=== PATIENT | male | born 1980 | race African-American/Black ===

== ENCOUNTER 2017-04-23 03:35 | Emergency (ER) | payer OTHER ==
[~2017-04-23] VITALS: Ht 190.5 cm; Wt 136.3 kg
[2017-04-23] MEDS ORDERED: HYDR12.55 PO (03:50)
[2017-04-23] MEDS ORDERED: AMLO25TA PO (03:50)
[2017-04-23] MEDS ORDERED: LISI10TA4 PO (03:50)
[2017-04-23 04:23] LABS: BASO % 0.7 % (0.0-1.0); EOS # 0.2 K/mm3 (0.0-0.50); EOS % 5.1 % (0.0-3.0); LARGE UNSTAINED CELL # 0.2 K/mm3 (0.0-0.4); LARGE UNSTAINED CELL % 3.8 % (0.0-4.0); LYMPH # 1.8 K/mm3 (1.5-4.5); LYMPH % 39.4 % (24.0-44.0); MEAN CORPUSCULAR HEMOGLOBIN 28.1 pg (27.0-33.0); MEAN CORPUSCULAR HGB CONC 33.5 g/dl (32.0-36.5); MONO # 0.4 K/mm3 (0.0-0.8); MONO % 8.2 % (0.0-5.0); NEUTROPHILS % 42.8 % (36.0-66.0); PLATELET COUNT, AUTOMATED 174 k/mm3 (150-450); RED CELL DISTRIBUTION WIDTH 13.9 % (11.5-14.5); WHITE BLOOD COUNT 4.6 K/mm3 (4.0-10.0)
[2017-04-23 04:39] LABS: INR 0.86
[2017-04-23 04:48] LABS: ANION GAP 8 MEQ/L (8-16); BLOOD UREA NITROGEN 12 MG/DL (7-18); CALCIUM LEVEL 9.1 MG/DL (8.5-10.1); CARBON DIOXIDE LEVEL 27 MEQ/L (21-32); CHLORIDE LEVEL 106 MEQ/L (98-107); CREATININE FOR GFR 0.89 MG/DL (0.70-1.30); GLOMERULAR FILTRATION RATE > 60.0 (>60); GLUCOSE, FASTING 92 MG/DL (70-105); POTASSIUM SERUM 3.6 MEQ/L (3.5-5.1); SODIUM LEVEL 141 MEQ/L (136-145)
[2017-04-23] MEDS ORDERED: KETOROLAC 30 MG/ML VIAL (J1885) IV ONE (06:15)
[2017-04-23] MEDS ORDERED: NAPR500T PO (06:33)
[2017-04-23 06:44] VITALS: BP 157/104
--- NOTE | 2017-04-23 07:53 | REP ---
Chest x-ray: Two views. History: Chest pain . Comparison study: No comparison . Findings: The lungs are well inflated and free of infiltrate. The pleural angles are sharp. The heart size is normal. Pulmonary vasculature is not increased. No significant bony abnormality is seen. EKG monitoring electrodes overlie the chest. Impression: Negative chest x-ray. Signed by Bryn Caruso MD 04/23/2017 07:44 A
--- NOTE | 2017-04-24 10:21 | ECGEPIP ---
Stationary ECG Study [facility] - ED Test Date: 2017-04-23 Pat Name: KACY ISIDRO Department: Room: - Gender: M [employer]: : 1980 Requested By: PEACE Flood Order Number: [id number] Reading MD: Bebe Dukes Measurements Intervals [place] Rate: 71 P: 42 CO: 192 QRS: -34 QRSD: 114 T: 26 QT: 382 QTc: 417 Interpretive Statements SINUS RHYTHM MARKED LEFT AXIS DEVIATION S1-S2-S3 PATTERN, CONSISTENT WITH PULMONARY DISEASE, RVH, OR NORMAL VARIANT MODERATE INTRAVENTRICULAR CONDUCTION DELAY EARLY REPOLARIZATION NO PRIOR FOR COMPARISON Electronically Signed On 04-24-2017 10:21:26 EDT by Bebe Dukes
== END 2017-04-23 07:19 | disposition home or self-care (01) ==
LOC: M ED 03:35
DX: R07.89 Other chest pain (principal); I10 Essential (primary) hypertension; F17.200 Nicotine dependence, unspecified, uncomplicated; Z79.899 Other long term (current) drug therapy; Z91.013 Allergy to seafood
CPT/HCPCS: 71020; 80048; 82550; 82553; 85025; 85610; 93005; 93041; 94760; 96374; 99285; J1885